=== PATIENT | male | born 1995 | race Hispanic/Latino ===

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

== ENCOUNTER 2017-01-20 14:00 | Outpatient (RCR) | payer OTHER | END 2017-01-26 | LOC: M OUTALCOH 14:00 | PROVIDERS: ATTEND Psychiatry & Neurology Psychiatry | DX: F12.20 Cannabis dependence, uncomplicated (principal); Z72.0 Tobacco use ==

== ENCOUNTER 2018-02-08 10:37 | Inpatient (IN) | payer OTHER ==
[2018-02-08 12:38] LABS: ANION GAP 5 MEQ/L (8-16); BLOOD UREA NITROGEN 8 MG/DL (7-18); CALCIUM LEVEL 8.8 MG/DL (8.5-10.1); CARBON DIOXIDE LEVEL 28 MEQ/L (21-32); CHLORIDE LEVEL 111 MEQ/L (98-107); CREATININE FOR GFR 0.86 MG/DL (0.70-1.30); GLUCOSE, FASTING 88 MG/DL (70-100); POTASSIUM SERUM 4.1 MEQ/L (3.5-5.1); SODIUM LEVEL 144 MEQ/L (136-145)
[2018-02-08 12:42] LABS: LACTIC ACID SEPSIS PROTOCOL 0.9 MMOL/L (0.4-2.0)
[2018-02-08] MEDS ORDERED: zolPIDEM TARTRATE 10MG TAB PO (18:00)
[2018-02-08] MEDS ORDERED: MOM 30ML SUSPENSION UDC PO (18:00)
[2018-02-08] MEDS ORDERED: traZODone 50 MG TAB PO (18:00)
[2018-02-08] MEDS ORDERED: MAALOX 30 ML SUSP *UDC PO (18:00)
[2018-02-09 09:55] LABS: HEMATOCRIT 46.7 % (42.0-52.0); HEMOGLOBIN 15.8 g/dl (13.5-17.5); MEAN CORPUSCULAR HEMOGLOBIN 30.1 pg (27.0-33.0); MEAN CORPUSCULAR HGB CONC 33.8 g/dl (32.0-36.5); PLATELET COUNT, AUTOMATED 213 10^3/uL (150-450); RED BLOOD COUNT 5.25 10^6/uL (4.30-6.10); RED CELL DISTRIBUTION WIDTH 13.4 % (11.5-14.5); WHITE BLOOD COUNT 7.5 10^3/uL (4.0-10.0)
[2018-02-09 10:46] LABS: ALBUMIN 3.8 GM/DL (3.2-5.2); ALBUMIN/GLOBULIN RATIO 1.12 (1.00-1.93); ALKALINE PHOSPHATASE 61 U/L (45-117); ALT/SGPT 17 U/L (12-78); ANION GAP 7 MEQ/L (8-16); AST/SGOT 21 U/L (7-37); BILIRUBIN,TOTAL 0.7 MG/DL (0.2-1.0); BLOOD UREA NITROGEN 12 MG/DL (7-18); CALCIUM LEVEL 8.7 MG/DL (8.5-10.1); CARBON DIOXIDE LEVEL 26 MEQ/L (21-32); CHLORIDE LEVEL 108 MEQ/L (98-107); CREATININE FOR GFR 0.82 MG/DL (0.70-1.30); GLUCOSE, FASTING 89 MG/DL (70-100); POTASSIUM SERUM 4.3 MEQ/L (3.5-5.1); SODIUM LEVEL 141 MEQ/L (136-145); TOTAL PROTEIN 7.2 GM/DL (6.4-8.2)
[2018-02-09] MEDS: PALIPERIDONE 3 MG ER TAB (INVEGA) PO (21:00)
[2018-02-10] MEDS: PALIPERIDONE 3 MG ER TAB (INVEGA) PO ×2 (09:00→21:00)
[2018-02-11] MEDS: PALIPERIDONE 3 MG ER TAB (INVEGA) PO ×3 (09:00→20:53)
[2018-02-12] MEDS: PALIPERIDONE 3 MG ER TAB (INVEGA) PO ×2 (08:03→20:46)
[2018-02-13] MEDS: PALIPERIDONE 3 MG ER TAB (INVEGA) PO ×2 (08:31→21:15)
[2018-02-13] MEDS ORDERED: OLANZapine ORAL DISINTEGRATING TAB 5MG PO (21:45)
[2018-02-14] MEDS: CitaloPRAM (CeleXA) 10 MG TABLET PO (08:03)
[2018-02-14] MEDS: PALIPERIDONE 3 MG ER TAB (INVEGA) PO ×2 (08:03→20:48)
[2018-02-14] MEDS: traZODone 50 MG TAB PO (20:48)
[2018-02-15] MEDS: PALIPERIDONE 3 MG ER TAB (INVEGA) PO ×2 (08:05→20:57)
[2018-02-15] MEDS: CitaloPRAM (CeleXA) 10 MG TABLET PO (08:05)
[2018-02-15] MEDS: traZODone 50 MG TAB PO (20:57)
[2018-02-16] MEDS: PALIPERIDONE 3 MG ER TAB (INVEGA) PO ×2 (08:39→21:00)
[2018-02-16] MEDS: CitaloPRAM (CeleXA) 10 MG TABLET PO (08:40)
[2018-02-16] MEDS: traZODone 50 MG TAB PO (21:00)
[2018-02-17] MEDS: PALIPERIDONE 3 MG ER TAB (INVEGA) PO ×2 (07:50→20:54)
[2018-02-17] MEDS: CitaloPRAM (CeleXA) 10 MG TABLET PO (07:51)
[2018-02-18] MEDS: CitaloPRAM (CeleXA) 10 MG TABLET PO (08:15)
[2018-02-18] MEDS: PALIPERIDONE 3 MG ER TAB (INVEGA) PO (09:00)
== END 2018-02-18 19:20 | disposition home or self-care (01) | DRG 885 ==
LOC: M ED 10:37 → M ED INP 15:36 → M PSY 16:17
DX: F29 Unspecified psychosis not due to a substance or known physiological condition (principal); F20.0 Paranoid schizophrenia; Z91.018 Allergy to other foods

== ENCOUNTER 2018-02-22 20:57 | Inpatient (IN) | payer OTHER ==
[2018-02-22 22:02] LABS: HEMATOCRIT 46.8 % (42.0-52.0); HEMOGLOBIN 15.9 g/dl (13.5-17.5); MEAN CORPUSCULAR HEMOGLOBIN 29.9 pg (27.0-33.0); PLATELET COUNT, AUTOMATED 264 10^3/uL (150-450); RED BLOOD COUNT 5.32 10^6/uL (4.30-6.10); RED CELL DISTRIBUTION WIDTH 13.6 % (11.5-14.5); WHITE BLOOD COUNT 11.2 10^3/uL (4.0-10.0)
[2018-02-22 22:26] LABS: ALBUMIN 4.2 GM/DL (3.2-5.2); ALKALINE PHOSPHATASE 66 U/L (45-117); ALT/SGPT 20 U/L (12-78); ANION GAP 9 MEQ/L (8-16); AST/SGOT 16 U/L (7-37); BILIRUBIN,DIRECT 0.2 MG/DL (0.0-0.2); BILIRUBIN,TOTAL 0.7 MG/DL (0.2-1.0); BLOOD UREA NITROGEN 14 MG/DL (7-18); CARBON DIOXIDE LEVEL 27 MEQ/L (21-32); CHLORIDE LEVEL 103 MEQ/L (98-107); CREATININE FOR GFR 0.85 MG/DL (0.70-1.30); ETHYL ALCOHOL (ETHANOL) < 0.003 % (0.000-0.010); GLUCOSE, FASTING 96 MG/DL (70-100); POTASSIUM SERUM 3.7 MEQ/L (3.5-5.1); SALICYLATE LEVEL < 1.7 MG/DL (5.0-30.0); SODIUM LEVEL 139 MEQ/L (136-145); TOTAL PROTEIN 7.7 GM/DL (6.4-8.2)
[2018-02-22 22:29] LABS: ACETAMINOPHEN LEVEL < 2.0 UG/ML (10.0-30.0)
[2018-02-22 22:36] LABS: AMPHETAMINES LEVEL URINE NEGATIVE (NEGATIVE); BARBITURATES URINE NEGATIVE (NEGATIVE); BENZODIAZEPINES URINE NEGATIVE (NEGATIVE); CANNABINOIDS URINE POSITIVE (NEGATIVE); COCAINE METABOLITE URINE NEGATIVE (NEGATIVE); METHADONE URINE NEGATIVE (NEGATIVE); OPIATES URINE NEGATIVE (NEGATIVE); PHENCYCLIDINE URINE NEGATIVE (NEGATIVE)
[2018-02-22] MEDS: LORazepam 2 MG/ML VIAL (J2060) IM (23:02)
[2018-02-22] MEDS: diphenhydrAMINE INJ 50MG/ML VIAL (J1200) IM (23:03)
[2018-02-22] MEDS ORDERED: MAALOX 30 ML SUSP *UDC PO (23:15)
[2018-02-22] MEDS ORDERED: MOM 30ML SUSPENSION UDC PO (23:15)
[2018-02-22] MEDS ORDERED: ACETAMINOPHEN TAB 650MG DOSE (2X325MG) PO (23:15)
[2018-02-23] MEDS: PALIPERIDONE 3 MG ER TAB (INVEGA) PO ×2 (08:36→22:15)
[2018-02-23] MEDS ORDERED: OLANZapine ORAL DISINTEGRATING TAB 5MG PO (11:15)
[2018-02-23] MEDS: PALIPERIDONE PALMITATE 234 MG/1.5 ML INJ (INVEGA SUSTENNA)(J2426) IM (13:00)
[2018-02-24] MEDS: PALIPERIDONE 3 MG ER TAB (INVEGA) PO ×2 (09:35→22:50)
[2018-02-25] MEDS: PALIPERIDONE 3 MG ER TAB (INVEGA) PO ×2 (09:23→21:00)
[2018-02-25] MEDS ORDERED: OLANZapine ORAL DISINTEGRATING TAB 5MG As Ordered (15:55)
[2018-02-25] MEDS ORDERED: diphenhydrAMINE 50 MG CAP As Ordered (15:56)
[2018-02-26] MEDS: PALIPERIDONE 3 MG ER TAB (INVEGA) PO ×2 (08:24→21:30)
[2018-02-26] MEDS: diphenhydrAMINE 50 MG CAP PO (13:09)
[2018-02-26] MEDS: HALOPERIDOL 5 MG TAB PO (13:09)
[2018-02-26] MEDS: LORazepam 1 MG TAB PO (13:09)
[2018-02-26] MEDS: diphenhydrAMINE INJ 50MG/ML VIAL (J1200) IM (13:17)
[2018-02-26] MEDS ORDERED: HALOPERIDOL 5 MG/ML VIAL (J1630) IM (13:17)
[2018-02-26] MEDS: LORazepam 2 MG/ML VIAL (J2060) IM (14:17)
[2018-02-27] MEDS: PALIPERIDONE 3 MG ER TAB (INVEGA) PO ×2 (09:40→20:11)
[2018-02-28] MEDS: PALIPERIDONE 3 MG ER TAB (INVEGA) PO ×2 (10:37→20:51)
[2018-03-01] MEDS: PALIPERIDONE 3 MG ER TAB (INVEGA) PO ×2 (08:43→20:37)
[2018-03-01] MEDS: traZODone 50 MG TAB PO (20:37)
[2018-03-02] MEDS: PALIPERIDONE 3 MG ER TAB (INVEGA) PO ×2 (08:13→20:29)
[2018-03-02] MEDS: traZODone 50 MG TAB PO (20:29)
[2018-03-03] MEDS: PALIPERIDONE 3 MG ER TAB (INVEGA) PO ×2 (08:43→21:03)
[2018-03-03] MEDS: PALIPERIDONE PALMITATE 156 MG/1ML INJ(INVEGA SUSTENNA)(J2426) IM (08:43)
[2018-03-03] MEDS: traZODone 50 MG TAB PO (21:03)
[2018-03-04] MEDS: PALIPERIDONE 3 MG ER TAB (INVEGA) PO (08:58)
[2018-03-04] MEDS ORDERED: diphenhydrAMINE 25 MG CAP PO (11:15)
[2018-03-04] MEDS ORDERED: OLANZapine 5 MG TAB PO (21:00)
[2018-03-27] MEDS ORDERED: PALIPERIDONE PALMITATE 234 MG/1.5 ML INJ (INVEGA SUSTENNA)(J2426) IM (09:00)
== END 2018-03-04 16:40 | disposition home or self-care (01) | DRG 885 ==
LOC: M PSY 02-26 15:47 → M ED 20:57 → M ED INP 23:09 → M PSY 23:37
DX: F29 Unspecified psychosis not due to a substance or known physiological condition (principal); F20.0 Paranoid schizophrenia; Z91.14 Patient's other noncompliance with medication regimen; Z79.899 Other long term (current) drug therapy; Z91.018 Allergy to other foods; Z81.8 Family history of other mental and behavioral disorders

== ENCOUNTER 2019-09-30 20:53 | Inpatient (IN) | payer MEDICAID, OTHER, SELFPAY ==
[~2019-09-30] VITALS: Ht 172.7 cm; Wt 60.2 kg
[2019-09-30] MEDS: NICOTINE 21MG/24HR 1 EA TRANSDERMAL TD SCH (09:00)
[~2019-09-30 20:53] MED LIST: CELE10TA PO; CITA20TA6 PO; DIPH25CA32 PO; INVE234I IM; OLAN5TAB PO; PALI1TAB2 PO; PALI1TAB3 PO; TRAZ1TAB10 PO
[2019-09-30] MEDS: PALIPERIDONE 3 MG ER TAB (INVEGA) PO SCH (21:00)
[2019-09-30 22:22] LABS: HEMOGLOBIN 14.9 g/dl (13.5-17.5); MEAN CORPUSCULAR HEMOGLOBIN 30.4 pg (27.0-33.0); MEAN CORPUSCULAR HGB CONC 33.1 g/dl (32.0-36.5); MEAN CORPUSCULAR VOLUME 91.8 fl (80.0-96.0); PLATELET COUNT, AUTOMATED 217 10^3/uL (150-450); WHITE BLOOD COUNT 9.2 10^3/uL (4.0-10.0)
[2019-09-30 22:43] LABS: AMPHETAMINES LEVEL URINE NEGATIVE (NEGATIVE); BARBITURATES URINE NEGATIVE (NEGATIVE); BENZODIAZEPINES URINE NEGATIVE (NEGATIVE); CANNABINOIDS URINE POSITIVE (NEGATIVE); COCAINE METABOLITE URINE NEGATIVE (NEGATIVE); METHADONE URINE NEGATIVE (NEGATIVE); OPIATES URINE NEGATIVE (NEGATIVE); PHENCYCLIDINE URINE NEGATIVE (NEGATIVE)
[2019-09-30 22:58] LABS: ACETAMINOPHEN LEVEL < 2.0 UG/ML (10.0-30.0); ALBUMIN 3.9 GM/DL (3.2-5.2); ALT/SGPT 22 U/L (12-78); BILIRUBIN,DIRECT < 0.1 MG/DL (0.0-0.2); BILIRUBIN,TOTAL 0.3 MG/DL (0.2-1.0); BLOOD UREA NITROGEN 6 MG/DL (7-18); CALCIUM LEVEL 8.9 MG/DL (8.5-10.1); CARBON DIOXIDE LEVEL 28 MEQ/L (21-32); CHLORIDE LEVEL 105 MEQ/L (98-107); CREATININE FOR GFR 0.74 MG/DL (0.70-1.30); ETHYL ALCOHOL (ETHANOL) < 0.003 % (0.000-0.010); GLOMERULAR FILTRATION RATE > 60.0 (>60); GLUCOSE, FASTING 94 MG/DL (70-100); SALICYLATE LEVEL 3.2 MG/DL (5.0-30.0); SODIUM LEVEL 139 MEQ/L (136-145)
[2019-09-30] MEDS ORDERED: MAALOX 30 ML SUSP *UDC PO PRN (23:30)
[2019-09-30] MEDS ORDERED: ACETAMINOPHEN TAB 650MG DOSE (2X325MG) PO PRN (23:30)
[2019-09-30] MEDS ORDERED: OLANZapine ORAL DISINTEGRATING TAB 5MG PO PRN (23:30)
[2019-09-30] MEDS ORDERED: MOM 30ML SUSPENSION UDC PO PRN (23:30)
[2019-10-01 00:23] VITALS: BP 140/80
[2019-10-01 06:31] VITALS: BP 120/78
[2019-10-01] MEDS: NICOTINE 21MG/24HR 1 EA TRANSDERMAL TD SCH (09:00)
[2019-10-01] MEDS: PALIPERIDONE 3 MG ER TAB (INVEGA) PO SCH (09:00)
--- NOTE | 2019-10-01 11:07 | MHHPEPDOC ---
General Date Of Admission: Sep 30, 2019 Legal Status: 9.39 Chief Complaint "I need mental health". History of Present Illness HISTORY OF THE PRESENT ILLNESS: Patient is a 24 -year-old , male, with a psych history of schizophrenia, last admitted [facility] 03/04/19 for psychosis who was brought to ED by [employer] due to acting bizarre, paranoid, and requesting to come to [facility] ED per ED. Per ED, pt was vvery guarded, poor eye contact, need prompting on answering question and then would answer inappropriately, and non-verbal mostly when seen. Per ED, pt speaking to God "God has a plan for me" and that he came to the ED "to repent for my sins in velez esoteric way" and would inappropriately smile when speaking. Also stated, "I'm hearing shit I shouldn't be hearing." Per ED, pt has been non-compliant with outpatient care and medications. Psychiatric Review of Systems Depression (2 or more weeks): denies Psychosis: auditory hallucination, delusions, paranoia, disorganization, other (religiousity) PTSD: denies Anxiety: denies Anxiety/ 6 months or more of: restlessness, keyed up, difficulty concentrating, irritability Past Psychiatric History Previous Psychiatric Diagnosis: Unspecified Psychosis, Schizophrenia Previous Psychiatric Admissions: last admission [facility] 03/04/19 for psychosis Suicide Attempts: no hx of per pt's aunt Psychiatric Follow-up: [facility] Psychiatric medications: invega 9mg bid Past Medical History Medical Problems denies Head Injury: No Seizures: No Hospitalizations: No Surgeries: No Family Medical/Psychiatric HX Medical Problems noncontributory Psychiatric Disorders: No Addiction: No Suicide Attemps/Completions: No Addiction History nicotine, alcohol, other (cannabis utox positive) Social History Childhood: raised mostly by aunt after mother diagnosed with schizophrenia at age 5 Abuse/Trauma:none known Current Living Situation: lives with aunt Education: high school edu Employment: quit job last week for unknown reason Social Support: aunt Legal: none known Marital: single Mental Status Examination General Appearance: unkempt, appears stated age, hospital scubs/clothing Build: average Demeanor: preoccupied, guarded Eye Contact: fair Activity: average Behavior: cooperative, other (disorganized) Speech: clear, non-spontaneous, impoverished, other (non-sensical) Mood: euthymic Mood "people know my thoughts" Affect: full, inappropriate, disorganized Thought Process: tangential, loose, associative, flight of ideas, derailment Thought Content (Delusions): grandiose, bizarre, paranoia, delusions (believes he has a "mind leak"), other (religiousity) Thought Content (Other): preoccupied, ideas of reference, internal-stimuli, appears paranoid Thought Content (Aggressive): none reported Perception (Hallucinations): auditory Perception (Other): none reported Cognition (Impairment of): memory, attention/concentration, ability to abstract Cognition(Intelligence Est.): average Oriented: Awake, Alert, Oriented times three Insight: poor Judgment: Poor Psychosis: Associations, Psychotic Perceptions Diagnoses Paranoid Schizophrenia Cannabis use d/o A-FIB/CHADSVASC A-FIB History Current/History of A-Fib/PAF?: No Assessment Pt seen and is disorganized, talking about God wanting something for him, believes he has a "mind link" and that people "know my thoughts," and answering questions non-scenically. He appears to be experiencing psychosis secondary to med noncompliance. He is agreeable to restarting invega that he calls "that wonderful medication." He appears to need figure skater antipsychotic injection for med compliance. Pt is a very poor historian due to current paranoia and psychosis. Initial Treatment Plan 1. Patient was admitted on a 9.39 status. 2. Complete history was obtained. 3. With patients permission, family will be contacted and database will be expanded. 4. Patients medication regimen will be reviewed and changed accordingly. 5. Patient will be provided with protected environment. 6. Patient will be treated with individual, group, and milieu therapies. 7. Patient will receive supportive psych-education. 8. Discharge planning will commence immediately. 9. Outpatient follow-up treatment will be strongly recommended. 10. The initial treatment plan will focus initially on: * Depression. * Risk for suicide. 11. restart invega 6mg bid. Invega sustenna 234mg IM in future. Prns for anxiety/agitation ESTIMATED LENGTH OF STAY: 7-10 DAYS. TIME SPENT COUNSELING AND COORDINATING INITIAL CARE: 30 minutes. Vital Signs Vital Signs Date Time Temp Pulse Resp B/P (MAP) Pulse Ox O2 Delivery O2 Flow Rate FiO2 10/01/19 06:31 98.3 65 16 120/78 (92) Room Air 10/01/19 00:23 99 Laboratory Data 24H Labs Laboratory Tests 2 09/30/19 22:10: Nucleated Red Blood Cells % (auto) 0.0, Anion Gap 6L, Glomerular Filtration Rate > 60.0, Calcium Level 8.9, Total Bilirubin 0.3, Direct Bilirubin < 0.1, Aspartate Amino Transf (AST/SGOT) 23, Alanine Aminotransferase (ALT/SGPT) 22, Alkaline Phosphatase 90, Total Protein 7.0, Albumin 3.9, Albumin/Globulin Ratio 1.26, Thyroid Stimulating Hormone (TSH) 3.010, Salicylates Level 3.2L, Acetaminophen Level < 2.0L, Ethyl Alcohol Level < 0.003 09/30/19 22:11: Urine Opiates Screen NEGATIVE, Urine Methadone Screen NEGATIVE, Urine Barbiturates Screen NEGATIVE, Urine Phencyclidine Screen NEGATIVE, Urine Amphetamines Screen NEGATIVE, Urine Benzodiazepines Screen NEGATIVE, Urine Cocaine Metabolite Screen NEGATIVE, Urine Cannabinoids Screen POSITIVEH CBC/BMP Laboratory Tests 09/30/19 22:10 Medications Unable to Obtain Active Prescriptions or Reported Meds Allergies Coded Allergies: [place] (Verified Allergy, Unknown, 02/08/18) CARLINE SAVAGE DO Oct 01, 2019 11:07 am
[2019-10-01] MEDS ORDERED: PALIPERIDONE 3 MG ER TAB (INVEGA) PO ONE (11:15)
--- NOTE | 2019-10-01 15:36 | HPEPDOC ---
General Date of Admission Sep 30, 2019 at 23:25 Date of Service: Oct 01, 2019 Attending Physician: GALLO OAKLEY MD Chief Complaint The patient is a 24-year-old male admitted with a reason for visit of Unspecified Psychotic Disorder. Source: Patient Exam Limitations: No limitations Timing/Duration: Unsure Severity: Severe Associated Symptoms: Other (psychosis) History of Present Illness 24 yo man with a history of schizophrenia, cigarrette smoking and marijuana use who was brought in to the ED by the police after they found him wandering the streets of [place] and he asked to be taken to the ED and after initial medical screening was admitted to [facility] for psychiatric evaluation and medical management. On meeting Mr. Ogden, he is in nimco psychosis with disorganized conversations that are tangential, suspicious and withdrawn. Agreed to have phy sical exam and was pleasant otherwise. When I asked where he lives, he said [place]." He otherwise denied any recent fevers, chills, congestion, shortness of breath, chest pain, palpitations. Home Medications Unable to Obtain Active Prescriptions or Reported Meds Allergies Coded Allergies: [place] (Verified Allergy, Unknown, 02/08/18) Past Medical History Medical History Schizophrenia Smoker Marijuana use A-FIB/CHADSVASC A-FIB History Current/History of A-Fib/PAF?: No Current PO Anticoag Therapy: No Age/Risk Factor Scoring CHADSVASC: CHADSVASC Response (Comments) Value Age Risk Factor Age < 65 years old 0 Gender Risk Factor Male 0 Hx of CHF No 0 Hx of HTN No 0 Hx of Stroke/TIA/or VTE No 0 Hx of Diabetes No 0 Hx of Vascular Disease No 0 Total 0 Treatment Treatment ordered: NONE Reason Anticoagulant not given: Not indicated/[id number] Review of Systems Constitutional: Denies: Chills, Fever, Night Sweats Eyes: Denies: Pain, Vision change ENT: Denies: Head Aches, Ear Pain, Dysphagia Skin: Denies: Rash, Lesions, Breakdown Pulmonary: Denies: Dyspnea, Cough Cardiovascular: Denies: Chest Pain, Palpitations, Orthopnea, Paroxysmal Noc. Dyspnea, Lt Headedness Gastrointestinal: Denies: Nausea, Vomiting, Abdominal Pain, Diarrhea Genitourinary: Denies: Dysuria, Frequency, Incontinence, Retention Hematologic: Denies: Bruising, Bleeding Excessively Endocrine: Denies: Polydipsia, Polyphagia, Polyuria, Heat Intolerance, Cold Intolerance, Other Endocrine Sx Musculoskeletal: Denies: Neck Pain, Back Pain, Joint Pain, Muscle Pain, Spasms Neurological: Denies: Weakness, Numbness, Change in speech, Confusion Psych: Reports: Depression (could not assess more than disorganized thought content and process.), Other Psych Physical Examination General Exam: Positive: Alert, No Acute Distress Eye Exam: Positive: PERRLA, Conjunctiva & lids normal, EOMI; Negative: Sclera icteric ENT Exam: Positive: Atraumatic, Mucous membr. moist/pink, Pharynx Normal Neck Exam: Positive: Supple; Negative: JVD, thyromegaly Chest Exam: Positive: Clear to auscultation, Normal air movement Heart Exam: Positive: Rate Normal, Regular Rhythm, Normal S1, Normal S2; Negative: Murmurs, Rubs Telemetry: Positive: No significant arrhythmia Abdomen Exam: Positive: Normal bowel sounds, Soft; Negative: Tenderness, Hepatospenomegaly Extremity Exam: Positive: Normal pulses; Negative: Clubbing, Cyanosis, Edema Skin Exam: Positive: Nl turgor and temperature, Other skin issue (has multiple tattoos, no erythema or lesions); Negative: Breakdown, Lesion Neuro Exam: Positive: Normal Gait, Normal Speech, Cranial Nerves 3-12 NL, Reflexes 2+ Psych Exam: Positive: Other (could not assess more than that he had disorganized thought process and content); Negative: Oriented x 3 (to self only, not place or circumstances) Vital Signs Vital Signs Date Time Temp Pulse Resp B/P (MAP) Pulse Ox O2 Delivery O2 Flow Rate FiO2 10/01/19 06:31 98.3 65 16 120/78 (92) Room Air 10/01/19 00:23 99 Laboratory Data Labs 24H Laboratory Tests 2 09/30/19 22:10: Nucleated Red Blood Cells % (auto) 0.0, Anion Gap 6L, Glomerular Filtration Rate > 60.0, Calcium Level 8.9, Total Bilirubin 0.3, Direct Bilirubin < 0.1, Aspartate Amino Transf (AST/SGOT) 23, Alanine Aminotransferase (ALT/SGPT) 22, Alkaline Phosphatase 90, Total Protein 7.0, Albumin 3.9, Albumin/Globulin Ratio 1.26, Thyroid Stimulating Hormone (TSH) 3.010, Salicylates Level 3.2L, Acetaminophen Level < 2.0L, Ethyl Alcohol Level < 0.003 09/30/19 22:11: Urine Opiates Screen NEGATIVE, Urine Methadone Screen NEGATIVE, Urine Barbiturates Screen NEGATIVE, Urine Phencyclidine Screen NEGATIVE, Urine Amphetamines Screen NEGATIVE, Urine Benzodiazepines Screen NEGATIVE, Urine Cocaine Metabolite Screen NEGATIVE, Urine Cannabinoids Screen POSITIVEH CBC/BMP Laboratory Tests 09/30/19 22:10 Assessment/Plan 24 yo man with schizophrenia who is admitted into the [facility] in nimco psychosis and good physical health with normal labs, with suspected medication non- compliance, so admitted for psychiatric evaluation and med optimizations. Medicine will sign off at this time. Please reconsult with any medical concerns. Thank you. Plan / VTE VTE Prophylaxis Ordered?: No VTE Exclusion Mechanical Proph: Low Risk for VTE VTE Exclusion Pharmacological: At Low Risk for VTE GALLO OAKLEY MD Oct 01, 2019 15:36
[2019-10-01] MEDS: PALIPERIDONE 6 MG ER TAB (INVEGA) PO SCH (20:25)
[2019-10-02] MEDS: PALIPERIDONE 6 MG ER TAB (INVEGA) PO SCH ×3 (09:50→20:35)
[2019-10-02] MEDS: NICOTINE 21MG/24HR 1 EA TRANSDERMAL TD SCH (09:50)
[2019-10-02 15:56] VITALS: BP 115/55
[2019-10-02] MEDS: traZODone 50 MG TAB PO PRN (20:35)
--- NOTE | 2019-10-02 20:52 | MHIPN ---
DATE: 10/02/2019 The patient today is basically denying any of the symptoms that resulted in his hospitalization. He says that he was never hearing any voices from God. He refers to "an old man." He says that he was talking to this man and the man was the one that called the police. He really does not feel that he needs to be in the hospital. MENTAL STATUS EXAMINATION: The patient is alert and oriented times three. He is pleasant, cooperative, verbally spontaneous. Eye contact is fair. There is no formal thought disorder noted. He says his mood is "good." Affect is appropriate to mood. He is denying any hallucinations or delusions, but I think that he is just minimizing at this point. He denying being suicidal or homicidal. Concentration is fair. Memory intact. Insight and judgment poor. DIAGNOSES: 1. Paranoid schizophrenia. 2. Cannabis use disorder. TREATMENT PLAN: At this point, we will continue to monitor the patient for his psychotic symptoms. He is really minimizing everything because he wants to be discharged now and his Invega will continue to be titrated as indicated.
[2019-10-03] MEDS: PALIPERIDONE 6 MG ER TAB (INVEGA) PO SCH ×2 (08:48→21:16)
[2019-10-03] MEDS: NICOTINE 21MG/24HR 1 EA TRANSDERMAL TD SCH (08:50)
[2019-10-03 15:51] VITALS: BP 127/70
--- NOTE | 2019-10-03 20:13 | MHIPN ---
DATE: 10/03/2019 The patient today told me that he is doing "good." He maintained no eye contact. He had no complaints. He said that he had just been sleeping in his room when staff went to get him. MENTAL STATUS EXAMINATION: The patient is alert and oriented times three. He responds in simple one or two word answers. Eye contact is poor. There is no formal thought disorder noted. Mood is good. Affect is flat. He is denying any hallucinations, but appears to be hallucinating. He is not suicidal or homicidal. Concentration is fair. Insight and judgment poor. DIAGNOSES: 1. Schizophrenia. 2. Cannabis use disorder. TREATMENT PLAN: At this point, we will continue to monitor the patient for his psychotic symptoms and hopefully we will start seeing some resolution of some of these symptoms with medication. He has absolutely no insight about his illness.
[2019-10-04 06:22] VITALS: BP 124/65
[2019-10-04] MEDS: NICOTINE 21MG/24HR 1 EA TRANSDERMAL TD SCH (08:02)
[2019-10-04] MEDS: PALIPERIDONE 6 MG ER TAB (INVEGA) PO SCH ×2 (08:03→20:26)
--- NOTE | 2019-10-04 11:05 | MHIPNPDOC ---
[facility] Progress Note Progress Note DATE OF SERVICE: 10/04/19 HISTORY: Patient is a 24 -year-old , male, with a psych history of schizophrenia, last admitted [facility] 03/04/19 for psychosis who was brought to ED by [employer] due to acting bizarre, paranoid, and requesting to come to [facility] ED per ED. Per ED, pt was very guarded, poor eye contact, need prompting on answering question and then would answer inappropriately, and non-verbal mostly when seen. Per ED, pt speaking to God "God has a plan for me" and that he came to the ED "to repent for my sins in velez esoteric way" and would inappropriately smile when speaking. Also stated, "I'm hearing shit I shouldn't be hearing." Per ED, pt has been non-compliant with outpatient care and medications. VITAL SIGNS: See below. NEW TEST RESULTS: See below. CURRENT MEDICATIONS: See below. MENTAL STATUS EXAMINATION: Patient is a 24-year old male, who is clean and in his own clothes. Speech: Is clear, normal volume, regular rate and rhythm. Language skills are intact. Thought processes including: logical and linear. Thought content: States that when he was helping his older 70 yr friend "my friend started talking about brandee lines and space manipulation. When I asked questions he got puffed up and called the police on me. I waited for them because I was not doing anything wrong." Which is a different statement from when he was brought into the ED. Denies SI, HI, AVH. Abstract reasoning, and computation: inappropriate Description of associations: inappropriate Description of abnormal or psychotic thoughts: bizarre delusions Judgment: poor. Insight: poor. Orientation: AAOx3. Recent and remote memory: intact. Attention span and concentration: fair Language: intact. Fund of knowledge: intact. Mood: "good I was bored over the weekend." Affect: appropriate, euthymic DIAGNOSES: 1. Paranoid Schizophrenia 2. Cannabis use d/o ASSESSMENT: Pt seen and states that his mood is "good, but I was bored this weekend." Pt no longer endorses any auditory or visual hallucinations. Pt is preoccupied with the idea that his elderly friend was the one who called the unemployment specialist on him when the pt started challenging his friends views on brandee lines and other mystical thinking. Pt stated that when he did object to those view, his friend got upset and called the police on him. The ED report states that he was found wandering [place] and complaining of "hearing and seeing shit that is not there." Will continue to monitor his awareness of why he was brought in. States he has been sleeping a lot and it should be noted that today is the first time staff has found him awake and engaged. Pt is encouraged to attend groups. He denies SI/HI, hallucinations, delusions. Pt feels safe here. MANAGEMENT PLAN: Continue Invega 6 mg. TIME SPENT: 30 minutes. Agree with student note. Dr. Fiorella Aguirre Vital Signs Vital Signs Date Time Temp Pulse Resp B/P (MAP) Pulse Ox O2 Delivery O2 Flow Rate FiO2 10/04/19 06:22 97.9 80 16 124/65 (84) 10/01/19 06:31 Room Air 10/01/19 00:23 99 Current Medications Current Medications Medications (Trade) Dose Ordered Sig/Liset Route PRN Reason Start Time Stop Time Status Last Admin Dose Admin Acetaminophen (Tylenol Tab) 650 mg Q6HP PRN PO HEADACHE or DISCOMFORT 09/30/19 23:30 Al Hydrox/Mg Hydrox/Simethicone (Mylanta) 30 ml Q4HP PRN PO HEARTBURN/INDIGESTION 09/30/19 23:30 Home Med (Med Rec Complete!) ASDIRECTED XX 09/30/19 21:45 09/30/19 21:40 DC Magnesium Hydroxide (Milk Of Magnesia) 30 ml DAILYPRN PRN PO CONSTIPATION 09/30/19 23:30 Nicotine (Nicoderm Cq 21mg) 1 patch DAILY TD 09/30/19 09:00 Olanzapine (ZyPREXA ZYDIS) 5 mg Q6HP PRN PO ANXIETY/AGITATION 09/30/19 23:30 Paliperidone (Invega) 3 mg BID PO 09/30/19 21:00 10/01/19 11:03 DC 10/01/19 09:00 Paliperidone (Invega) 6 mg BID PO 10/01/19 21:00 10/04/19 08:03 Trazodone HCl (Desyrel) 50 mg QHSP PRN PO INSOMNIA 09/30/19 23:30 10/02/19 20:35 Allergies Coded Allergies: [place] (Verified Allergy, Unknown, 02/08/18) KATIE SO S-IV Oct 04, 2019 10:56 FIORELLA AGUIRRE DO Oct 04, 2019 11:54
[2019-10-04 18:00] VITALS: BP 127/72
[2019-10-04] MEDS: traZODone 50 MG TAB PO PRN (20:26)
[2019-10-05 06:36] VITALS: BP 116/75
[2019-10-05] MEDS: NICOTINE 21MG/24HR 1 EA TRANSDERMAL TD SCH (08:17)
[2019-10-05] MEDS: PALIPERIDONE 6 MG ER TAB (INVEGA) PO SCH ×2 (08:18→20:05)
--- NOTE | 2019-10-05 09:01 | MHIPNPDOC ---
[facility] Progress Note Progress Note DATE OF SERVICE: 10/05/19 HISTORY: Patient is a 24 -year-old , male, with a psych history of schizophrenia, last admitted [facility] 03/04/19 for psychosis who was brought to ED by [facility] due to acting bizarre, paranoid, and requesting to come to [facility] ED per ED. Per ED, pt was very guarded, poor eye contact, need prompting on answering question and then would answer inappropriately, and non-verbal mostly when seen. Per ED, pt speaking to God "God has a plan for me" and that he came to the ED "to repent for my sins in velez esoteric way" and would inappropriately smile when speaking. Also stated, "I'm hearing shit I shouldn't be hearing." Per ED, pt has been non-compliant with outpatient care and medications. VITAL SIGNS: See below. NEW TEST RESULTS: See below. CURRENT MEDICATIONS: See below. MENTAL STATUS EXAMINATION: Patient is a 24-year old male, who is clean and in his own clothes. Speech: Is clear, normal volume, regular rate and rhythm. Language skills are intact. Thought processes including: logical and linear. Thought content: States that when he was helping his older 70 yr friend "my friend started talking about brandee lines and space manipulation. When I asked questions he got puffed up and called the police on me. I waited for them because I was not doing anything wrong." Which is a different statement from when he was brought into the ED. Denies SI, HI, AVH. Abstract reasoning, and computation: inappropriate Description of associations: inappropriate Description of abnormal or psychotic thoughts: bizarre delusions Judgment: poor. Insight: poor. Orientation: AAOx3. Recent and remote memory: intact. Attention span and concentration: fair Language: intact. Fund of knowledge: intact. Mood: "good I was bored over the weekend." Affect: appropriate, euthymic DIAGNOSES: 1. Paranoid Schizophrenia 2. Cannabis use d/o ASSESSMENT: Pt seen and states that his mood is "ok." Asked how his thoughts are and denies their clear "b/c I don't think that much" and that his thoughts are numb but denies it's b/c of the medicine. His is agreeable to taking invega sustenna as he admits he doesn't like taking medicine but will take the shot. States he doesn't know where he's going after d/c. He appears lackadaisical and slightly bizarre in affect. Pt no longer endorses any auditory or visual hallucinations. Pt is preoccupied with the idea that his elderly friend was the one who called the manager payment on him when the pt started challenging his friends views on brandee lines and other mystical thinking. Pt stated that when he did object to those view, his friend got upset and called the police on him. The ED report states that he was found wandering [place] and complaining of "hearing and seeing shit that is not there." Will continue to monitor his awareness of why he was brought in. States he has been sleeping a lot and it should be noted that today is the first time staff has found him awake and engaged. Pt is encouraged to attend groups. He denies SI/HI, hallucinations, delusions. Pt feels safe here. MANAGEMENT PLAN: Continue Invega 6 mg. invega sustenna 234mg im today invega sustenna 156mg im Friday TIME SPENT: 30 minutes. Vital Signs Vital Signs Date Time Temp Pulse Resp B/P (MAP) Pulse Ox O2 Delivery O2 Flow Rate FiO2 10/05/19 06:36 97.3 84 12 116/75 (89) Room Air 10/01/19 00:23 99 Current Medications Current Medications Medications (Trade) Dose Ordered Sig/Liset Route PRN Reason Start Time Stop Time Status Last Admin Dose Admin Acetaminophen (Tylenol Tab) 650 mg Q6HP PRN PO HEADACHE or DISCOMFORT 09/30/19 23:30 Al Hydrox/Mg Hydrox/Simethicone (Mylanta) 30 ml Q4HP PRN PO HEARTBURN/INDIGESTION 09/30/19 23:30 Home Med (Med Rec Complete!) ASDIRECTED XX 09/30/19 21:45 09/30/19 21:40 DC Magnesium Hydroxide (Milk Of Magnesia) 30 ml DAILYPRN PRN PO CONSTIPATION 09/30/19 23:30 Nicotine (Nicoderm Cq 21mg) 1 patch DAILY TD 09/30/19 09:00 Olanzapine (ZyPREXA ZYDIS) 5 mg Q6HP PRN PO ANXIETY/AGITATION 09/30/19 23:30 Paliperidone (Invega) 3 mg BID PO 09/30/19 21:00 10/01/19 11:03 DC 10/01/19 09:00 Paliperidone (Invega) 6 mg BID PO 10/01/19 21:00 10/05/19 08:18 Trazodone HCl (Desyrel) 50 mg QHSP PRN PO INSOMNIA 09/30/19 23:30 10/04/19 20:26 Allergies Coded Allergies: [place] (Verified Allergy, Unknown, 02/08/18) CARLINE SAVAGE DO Oct 05, 2019 9:01 am
[2019-10-05] MEDS ORDERED: PALIPERIDONE PALMITATE 234MG/1.5ML INJ (INVEGA)(J2426)(FREE PSY INPT ONLY) IM ONE (10:00)
[2019-10-05 16:28] VITALS: BP 118/65
[2019-10-05] MEDS: traZODone 50 MG TAB PO PRN (20:05)
[2019-10-06 06:43] VITALS: BP 129/63
[2019-10-06] MEDS: PALIPERIDONE 6 MG ER TAB (INVEGA) PO SCH ×2 (08:52→20:04)
[2019-10-06] MEDS: NICOTINE 21MG/24HR 1 EA TRANSDERMAL TD SCH (08:55)
--- NOTE | 2019-10-06 10:35 | MHIPNPDOC ---
[facility] Progress Note Progress Note DATE OF SERVICE: 10/06/19 HISTORY: Patient is a 24 -year-old , male, with a psych history of schizophrenia, last admitted [facility] 03/04/19 for psychosis who was brought to ED by [facility] due to acting bizarre, paranoid, and requesting to come to [facility] ED per ED. Per ED, pt was very guarded, poor eye contact, need prompting on answering question and then would answer inappropriately, and non-verbal mostly when seen. Per ED, pt speaking to God "God has a plan for me" and that he came to the ED "to repent for my sins in velez esoteric way" and would inappropriately smile when speaking. Also stated, "I'm hearing shit I shouldn't be hearing." Per ED, pt has been non-compliant with outpatient care and medications. VITAL SIGNS: See below. NEW TEST RESULTS: See below. CURRENT MEDICATIONS: See below. MENTAL STATUS EXAMINATION: Patient is a 24-year old male, who is clean and in his own clothes. Speech: Is clear, normal volume, regular rate and rhythm. Language skills are intact. Thought processes including: logical and linear. Thought content: mystical/magical thinking. Denies SI, HI, AVH. Abstract reasoning, and computation: more appropriate Description of associations: more appropriate Description of abnormal or psychotic thoughts: bizarre delusions Judgment: improving Insight: improving Orientation: AAOx3. Recent and remote memory: intact. Attention span and concentration: fair Language: intact. Fund of knowledge: intact. Mood: "alright" Affect:euthymic, less lackadaisical and less bizarre DIAGNOSES: 1. Paranoid Schizophrenia 2. Cannabis use d/o ASSESSMENT: Pt seen and states that his mood is "alright." Stated "the shot hurt" as received invega sustenna 234mg im yesterday that he is tolerating well and appears beneficial. Endorsing fatigue today most like due to im invega sustenna yesterday that should improve over time. States thoughts are more clear today. He appears less lackadaisical and less bizarre in affect today. Pt no longer endorses any auditory or visual hallucinations. Pt is occasionally preoccupied with mystical/magical thinking. Will continue to monitor his awareness of why he was brought in. States he has been sleeping a lot and it should be noted that today is the first time staff has found him awake and engaged. Pt is encouraged to attend groups. He denies SI/HI, hallucinations, delusions. Pt feels safe here. MANAGEMENT PLAN: Continue Invega 6 mg. invega sustenna 234mg im 10/05/2019 invega sustenna 156mg im Friday TIME SPENT: 30 minutes. Vital Signs Vital Signs Date Time Temp Pulse Resp B/P (MAP) Pulse Ox O2 Delivery O2 Flow Rate FiO2 10/06/19 06:43 97.9 72 14 129/63 (85) 10/05/19 06:36 Room Air 10/01/19 00:23 99 Current Medications Current Medications Medications (Trade) Dose Ordered Sig/Liset Route PRN Reason Start Time Stop Time Status Last Admin Dose Admin Acetaminophen (Tylenol Tab) 650 mg Q6HP PRN PO HEADACHE or DISCOMFORT 09/30/19 23:30 Al Hydrox/Mg Hydrox/Simethicone (Mylanta) 30 ml Q4HP PRN PO HEARTBURN/INDIGESTION 09/30/19 23:30 Home Med (Med Rec Complete!) ASDIRECTED XX 09/30/19 21:45 09/30/19 21:40 DC Magnesium Hydroxide (Milk Of Magnesia) 30 ml DAILYPRN PRN PO CONSTIPATION 09/30/19 23:30 Nicotine (Nicoderm Cq 21mg) 1 patch DAILY TD 09/30/19 09:00 Olanzapine (ZyPREXA ZYDIS) 5 mg Q6HP PRN PO ANXIETY/AGITATION 09/30/19 23:30 Paliperidone (Invega) 3 mg BID PO 09/30/19 21:00 10/01/19 11:03 DC 10/01/19 09:00 Paliperidone (Invega) 6 mg BID PO 10/01/19 21:00 10/06/19 08:52 Trazodone HCl (Desyrel) 50 mg QHSP PRN PO INSOMNIA 09/30/19 23:30 10/05/19 20:05 Allergies Coded Allergies: [place] (Verified Allergy, Unknown, 02/08/18) CARLINE SAVAGE DO Oct 06, 2019 10:35 am
[2019-10-06 16:21] VITALS: BP 112/70
[2019-10-06] MEDS: traZODone 50 MG TAB PO PRN (20:04)
[2019-10-07 05:52] VITALS: BP 116/62
[2019-10-07] MEDS: PALIPERIDONE 6 MG ER TAB (INVEGA) PO SCH ×2 (08:53→20:08)
[2019-10-07] MEDS: NICOTINE 21MG/24HR 1 EA TRANSDERMAL TD SCH (09:00)
--- NOTE | 2019-10-07 09:28 | MHIPNPDOC ---
[facility] Progress Note Progress Note DATE OF SERVICE: 10/07/19 HISTORY: Patient is a 24 -year-old , male, with a psych history of schizophrenia, last admitted [facility] 03/04/19 for psychosis who was brought to ED by [facility] due to acting bizarre, paranoid, and requesting to come to [facility] ED per ED. Per ED, pt was very guarded, poor eye contact, need prompting on answering question and then would answer inappropriately, and non-verbal mostly when seen. Per ED, pt speaking to God "God has a plan for me" and that he came to the ED "to repent for my sins in velez esoteric way" and would inappropriately smile when speaking. Also stated, "I'm hearing shit I shouldn't be hearing." Per ED, pt has been non-compliant with outpatient care and medications. VITAL SIGNS: See below. NEW TEST RESULTS: See below. CURRENT MEDICATIONS: See below. MENTAL STATUS EXAMINATION: Patient is a 24-year old male, who is clean and in his own clothes. Speech: Is clear, normal volume, regular rate and rhythm. Language skills are intact. Thought processes including: logical and linear. Thought content: mystical/magical thinking. Denies SI, HI, AVH. Abstract reasoning, and computation: more appropriate Description of associations: more appropriate Description of abnormal or psychotic thoughts: bizarre delusions Judgment: improving Insight: improving Orientation: AAOx3. Recent and remote memory: intact. Attention span and concentration: fair Language: intact. Fund of knowledge: intact. Mood: "Good" Affect:euthymic, less lackadaisical and less bizarre DIAGNOSES: 1. Paranoid Schizophrenia 2. Cannabis use d/o ASSESSMENT: Pt seen and states that his mood is "good." Pt appears improved, he is less bizarre in his thinking and states his thoughts are more clear. States he slept well last night. Feels he is tolerating his medications and they're beneficial- he is agreeable to receiving his invega sustenna 156 mg IM shot tomorrow. He is attending groups and finds them helpful. He denies insomnia, SI/HI, hallucinations, and delusions. Pt feels safe here. MANAGEMENT PLAN: Continue Invega 6 mg. D/c planning tomorrow. D/c oral invega prior d/c after second invega sustenna given. invega sustenna 234mg im 10/05/2019 invega sustenna 156mg im Friday TIME SPENT: 30 minutes. Vital Signs Vital Signs Date Time Temp Pulse Resp B/P (MAP) Pulse Ox O2 Delivery O2 Flow Rate FiO2 10/07/19 05:52 99.5 96 16 116/62 (80) 10/05/19 06:36 Room Air 10/01/19 00:23 99 Current Medications Current Medications Medications (Trade) Dose Ordered Sig/Liset Route PRN Reason Start Time Stop Time Status Last Admin Dose Admin Acetaminophen (Tylenol Tab) 650 mg Q6HP PRN PO HEADACHE or DISCOMFORT 09/30/19 23:30 Al Hydrox/Mg Hydrox/Simethicone (Mylanta) 30 ml Q4HP PRN PO HEARTBURN/INDIGESTION 09/30/19 23:30 Home Med (Med Rec Complete!) ASDIRECTED XX 09/30/19 21:45 09/30/19 21:40 DC Magnesium Hydroxide (Milk Of Magnesia) 30 ml DAILYPRN PRN PO CONSTIPATION 09/30/19 23:30 Nicotine (Nicoderm Cq 21mg) 1 patch DAILY TD 09/30/19 09:00 Olanzapine (ZyPREXA ZYDIS) 5 mg Q6HP PRN PO ANXIETY/AGITATION 09/30/19 23:30 Paliperidone (Invega) 3 mg BID PO 09/30/19 21:00 10/01/19 11:03 DC 10/01/19 09:00 Paliperidone (Invega) 6 mg BID PO 10/01/19 21:00 10/06/19 20:04 Trazodone HCl (Desyrel) 50 mg QHSP PRN PO INSOMNIA 09/30/19 23:30 10/06/19 20:04 Allergies Coded Allergies: [place] (Verified Allergy, Unknown, 02/08/18) GME ATTESTATION My faculty preceptor for this patient encounter was physically present during encounter and was fully available. All aspects of the patient interview, examination, medical decision making process, and medical care plan development were reviewed and approved by the faculty preceptor. The faculty preceptor is aware and concurs with the plan as stated in the body of this note and will attest to such by his/her cosignature. ATTENDING NOTE Pt seen and agree with student note. KATIE SO OMS-IV Oct 07, 2019 8:24 am CARLINE SAVAGE DO Oct 07, 2019 10:41 am
[2019-10-07 15:46] VITALS: BP 96/54
[2019-10-07] MEDS: traZODone 50 MG TAB PO PRN (20:08)
[2019-10-08 07:58] VITALS: BP 117/62
[2019-10-08] MEDS: PALIPERIDONE 6 MG ER TAB (INVEGA) PO SCH (08:14)
[2019-10-08] MEDS: NICOTINE 21MG/24HR 1 EA TRANSDERMAL TD SCH (08:30)
[2019-10-08] MEDS ORDERED: PALIPERIDONE PALMITATE 156MG/1ML INJ(INVEGA)(J2426)(FREE PSY INPT ONLY) IM ONE (09:00)
--- NOTE | 2019-10-08 09:01 | MHDSPDOC ---
[facility] Discharge Summary Discharge Summary DATE OF ADMISSION: Sep 30, 2019 at 11:25 pm DATE OF DISCHARGE: Oct 08, 2019 DISCHARGE DIAGNOSES: 1. Paranoid Schizophrenia 2. Cannabis use d/o REASON FOR ADMISSION: Patient is a 24 -year-old , male, with a psych history of schizophrenia, last admitted [facility] 03/04/19 for psychosis who was brought to ED by [facility] due to acting bizarre, paranoid, and requesting to come to [facility] ED per ED. Per ED, pt was very guarded, poor eye contact, need prompting on answering question and then would answer inappropriately, and non-verbal mostly when seen. Per ED, pt speaking to God "God has a plan for me" and that he came to the ED "to repent for my sins in velez esoteric way" and would inappropriately smile when speaking. Also stated, "I'm hearing shit I shouldn't be hearing." Per ED, pt has been non-compliant with outpatient care and medications. CONSULTANTS INVOLVED: none TREATMENT AND PROGRESS ON THE UNIT : Pt was admitted to [facility], seen for psychiatric assessment and started on invega 3mg bid that was increased to 6mg bid with finally administration on invega sustenna 234mg im and then 156mg im 3 days later with discontinuation of oral invega as he tolerated invega sustenna well and it appeared beneficial for pt's psychotic symptoms. He was provided trazodone 50mg qhs prn insomnia. Pt found his medications beneficial and tolerated them well. He attended groups daily during his stay. His symptoms improved with treatment. On day of discharge he denied depression, anxiety, insomnia, SI/HI, hallucinations, delusions. He was discharged home home to girlfriend's aunts home with follow-up with follow-up [facility].. He felt safe for discharge. DISCHARGE ASSESSMENT: Pt seen and states that his mood is "good." Pt appears to have improved greatly and his thoughts are now linear and logical. States he slept well last night. Feels he is tolerating his medications and invega is beneficial. He is attending groups and finds them helpful. He denies de pression, anxiety, insomnia, SI/HI, hallucinations, paranoia, and delusions. Pt feels safe to d/c home. MENTAL STATUS EXAMINATION ON DISCHARGE: Patient is a 24-year old male, who is clean and in his own clothes. Speech: Is clear, normal volume, regular rate and rhythm. Language skills are intact. Thought processes including: logical and linear. Thought content: mystical/magical thinking. Denies SI, HI, AVH. Abstract reasoning, and computation: more appropriate Description of associations: more appropriate Description of abnormal or psychotic thoughts: bizarre delusions Judgment: good Insight: good Orientation: AAOx3. Recent and remote memory: intact. Attention span and concentration: fair Language: intact. Fund of knowledge: intact. Mood: "Good" Affect:euthymic, full range MEDICATIONS ON DISCHARGE: invega sustenna 234mg im qmonthly PLAN/FOLLOWUP ARRANGEMENTS: D/c home to girlfriend's aunts home with follow-up with follow-up [facility]. The amount of time spent in the coordination of care for this patient was approximately 30 minutes. Vital Signs/I&Os Vital Signs Date Time Temp Pulse Resp B/P (MAP) Pulse Ox O2 Delivery O2 Flow Rate FiO2 10/08/19 07:58 97.7 86 14 117/62 (80) 10/05/19 06:36 Room Air Medications Unable to Obtain Active Prescriptions or Reported Meds Allergies Coded Allergies: [place] (Verified Allergy, Unknown, 02/08/18) CARLINE SAVAGE DO Oct 08, 2019 9:01 am
[2019-10-08] MEDS ORDERED: INVE234I IM (09:05)
== END 2019-10-08 13:15 | disposition home or self-care (01) | DRG 750 ==
LOC: M ED 20:53 → M ED INP 23:25 → M PSY 23:48
PROVIDERS: ADMIT Psychiatry & Neurology Psychiatry; ATTEND Psychiatry & Neurology Psychiatry
DX: F20.0 Paranoid schizophrenia (principal); F12.10 Cannabis abuse, uncomplicated; Z91.14 Patient's other noncompliance with medication regimen; Z91.018 Allergy to other foods; F17.210 Nicotine dependence, cigarettes, uncomplicated

== ENCOUNTER 2020-12-30 06:57 | Emergency (ER) | payer MEDICAID, OTHER ==
[~2020-12-30] VITALS: Ht 160 cm; Wt 56.8 kg
[2020-12-30] MEDS ORDERED: NS 1,000 ML IV ONE ×2 (07:05→08:05)
[2020-12-30 07:30] LABS: BASO % 0.3 % (0.0-1.0); EOS # 0.1 10^3/uL (0.0-0.5); EOS % 0.8 % (0.0-3.0); HEMATOCRIT 52.8 % (42.0-52.0); HEMOGLOBIN 17.4 g/dl (13.5-17.5); LYMPH # 2.4 10^3/uL (1.5-5.0); LYMPH % 18.4 % (24.0-44.0); MEAN CORPUSCULAR HEMOGLOBIN 30.3 pg (27.0-33.0); MONO # 1.4 10^3/uL (0.0-0.8); MONO % 11.1 % (2.0-8.0); NEUTROPHILS # 8.9 10^3/uL (1.5-8.5); NEUTROPHILS % 68.6 % (36.0-66.0); PLATELET COUNT, AUTOMATED 239 10^3/uL (150-450); RED BLOOD COUNT 5.74 10^6/uL (4.30-6.10)
[2020-12-30 07:59] LABS: ACETAMINOPHEN LEVEL < 2.0 UG/ML (10.0-30.0); ALBUMIN 4.2 GM/DL (3.2-5.2); ALT/SGPT 16 U/L (12-78); BILIRUBIN,DIRECT 0.2 MG/DL (0.0-0.2); BILIRUBIN,TOTAL 0.9 MG/DL (0.2-1.0); BLOOD UREA NITROGEN 14 MG/DL (7-18); CALCIUM LEVEL 9.6 MG/DL (8.5-10.1); CARBON DIOXIDE LEVEL 17 MEQ/L (21-32); CHLORIDE LEVEL 102 MEQ/L (98-107); CPK CREATINE PHOSPHOKINASE 143 U/L (39-308); CREATININE FOR GFR 1.51 MG/DL (0.70-1.30); ETHYL ALCOHOL (ETHANOL) < 0.003 % (0.000-0.010); GLOMERULAR FILTRATION RATE > 60.0 (>60); GLUCOSE, FASTING 161 MG/DL (70-100); POTASSIUM SERUM 4.2 MEQ/L (3.5-5.1); SALICYLATE LEVEL 3.8 MG/DL (5.0-30.0); SODIUM LEVEL 136 MEQ/L (136-145); TOTAL PROTEIN 7.9 GM/DL (6.4-8.2)
[2020-12-30 09:40] LABS: AMPHETAMINES LEVEL URINE NEGATIVE (NEGATIVE); BARBITURATES URINE NEGATIVE (NEGATIVE); BENZODIAZEPINES URINE NEGATIVE (NEGATIVE); CANNABINOIDS URINE POSITIVE (NEGATIVE); COCAINE METABOLITE URINE POSITIVE (NEGATIVE); METHADONE URINE NEGATIVE (NEGATIVE); OPIATES URINE NEGATIVE (NEGATIVE); PHENCYCLIDINE URINE NEGATIVE (NEGATIVE)
[2020-12-30 10:04] LABS: BLOOD UREA NITROGEN 12 MG/DL (7-18); CARBON DIOXIDE LEVEL 24 MEQ/L (21-32); CHLORIDE LEVEL 109 MEQ/L (98-107); CREATININE FOR GFR 0.98 MG/DL (0.70-1.30); GLOMERULAR FILTRATION RATE > 60.0 (>60); GLUCOSE, FASTING 92 MG/DL (70-100); POTASSIUM SERUM 3.9 MEQ/L (3.5-5.1); SODIUM LEVEL 141 MEQ/L (136-145)
--- NOTE | 2020-12-30 10:05 | REPVR ---
PROCEDURE INFORMATION: Exam: CT Head Without Contrast Exam date and time: 12/30/2020 9:35 AM Age: 25 years old Clinical indication: Altered mental status/memory loss; Confusion or disorientation; Additional info: Altered ms, seizure TECHNIQUE: Imaging protocol: Computed tomography of the head without contrast. Radiation optimization: All CT scans at this facility use at least one of these dose optimization techniques: automated exposure control; mA and/or kV adjustment per patient size (includes targeted exams where dose is matched to clinical indication); or iterative reconstruction. COMPARISON: CT Head without contrast 04/20/2016 12:20 PM FINDINGS: Brain: Normal. No hemorrhage. Unremarkable white matter. No mass effect. Cerebral ventricles: No ventriculomegaly. Bones/joints: Unremarkable. No acute fracture. Paranasal sinuses: Visualized sinuses are unremarkable. No fluid levels. Mastoid air cells: Visualized mastoid air cells are well aerated. Soft tissues: Unremarkable. IMPRESSION: No acute intracranial abnormality. Electronically signed by: Fili Ca On 12/30/2020 10:05:18 AM
[2020-12-30 17:55] LABS: RSV AMPLIFICATION NEGATIVE (NEGATIVE)
--- NOTE | 2020-12-30 19:06 | ECGEPIP ---
[facility] - ED Test Date: 2020-12-30 Pat Name: ASUNCION SEE Department: Room: - Gender: Male [employer] Vice President: Roberto SWENSON : 1995 Requested By: Stoney Laureano Order Number: [id number] Reading MD: Stoney Laureano Measurements Intervals [place] Rate: 128 P: 66 [place]: 124 QRS: 78 QRSD: 82 T: 8 QT: 296 QTc: 432 Interpretive Statements Sinus tachycardia Nonspecific ST T wave changes Delayed R wave progression 04/20/[address] T wave changes Electronically Signed on 12-30-2020 19:06:00 EDT by Stoney Laureano
[2020-12-30 20:41] VITALS: BP 117/65
== END 2020-12-30 20:46 ==
LOC: M ED 06:57 → EDBD 06:57 → M ED 20:46
DX: F23 Brief psychotic disorder (principal); F20.9 Schizophrenia, unspecified; R00.0 Tachycardia, unspecified; F19.10 Other psychoactive substance abuse, uncomplicated; F17.290 Nicotine dependence, other tobacco product, uncomplicated; Z91.018 Allergy to other foods; Z79.899 Other long term (current) drug therapy; Z81.8 Family history of other mental and behavioral disorders

== ENCOUNTER 2022-03-17 18:00 | Emergency (ER) | payer MEDICAID, OTHER ==
[~2022-03-17] VITALS: Ht 165.1 cm; Wt 65.4 kg
[~2022-03-17 18:00] MED LIST changes: +OLAN1TAB16 PO; -OLAN5TAB PO
[2022-03-17 18:01] VITALS: BP 143/91
== END 2022-03-17 21:18 | disposition home or self-care (01) ==
LOC: M ED 18:00
DX: F20.9 Schizophrenia, unspecified (principal); Z59.00 Homelessness unspecified; F12.10 Cannabis abuse, uncomplicated; F17.200 Nicotine dependence, unspecified, uncomplicated

== ENCOUNTER → 2022-07-31 | Outpatient (CLI) | payer OTHER | LOC: M OUTALCOH 07:40 | PROVIDERS: ATTEND Psychiatry & Neurology Psychiatry | DX: F10.10 Alcohol abuse, uncomplicated (principal) ==

== ENCOUNTER 2022-08-21 08:40 | Outpatient (RCR) | payer OTHER | END 2022-08-28 | LOC: M OUTALCOH 08:40 | PROVIDERS: ATTEND Psychiatry & Neurology Psychiatry | DX: F16.20 Hallucinogen dependence, uncomplicated (principal); F12.20 Cannabis dependence, uncomplicated; F10.10 Alcohol abuse, uncomplicated; Z72.0 Tobacco use ==

== ENCOUNTER 2023-04-03 17:18 | Emergency (ER) | payer OTHER ==
[~2023-04-03] VITALS: Ht 167.6 cm; Wt 67.5 kg
[~2023-04-03 17:18] MED LIST changes: +DIPH-435 PO; -DIPH25CA32 PO
[2023-04-03 20:32] VITALS: BP 122/68; TEMP 98.4; O2SAT 99
== END 2023-04-03 20:31 | disposition home or self-care (01) ==
LOC: M ED 17:18
DX: F20.0 Paranoid schizophrenia (principal); F12.90 Cannabis use, unspecified, uncomplicated; Z91.018 Allergy to other foods; Z79.899 Other long term (current) drug therapy

== ENCOUNTER 2023-04-03 20:42 | Emergency (ER) | payer OTHER ==
[~2023-04-03] VITALS: Ht 167.6 cm; Wt 68.1 kg
[2023-04-04] MEDS ORDERED: KETOROLAC 30 MG/ML 1ML VIAL IM ONE (08:20)
[2023-04-04 08:25] VITALS: BP 124/73; TEMP 98.2; O2SAT 99
== END 2023-04-04 09:00 | disposition home or self-care (01) ==
LOC: M ED 20:42
DX: S30.0XXA Contusion of lower back and pelvis, initial encounter (principal); W17.89XA Other fall from one level to another, initial encounter; Y92.830 Public park as the place of occurrence of the external cause; Y93.89 Activity, other specified; Y99.8 Other external cause status; M54.6 Pain in thoracic spine; F20.9 Schizophrenia, unspecified; Z87.891 Personal history of nicotine dependence; Z88.6 Allergy status to analgesic agent; Z91.018 Allergy to other foods; Z79.899 Other long term (current) drug therapy
CPT/HCPCS: 72052; 72072; 72110; 96372; 99282; J1885

== ENCOUNTER 2024-05-27 14:23 | Inpatient (IN) | payer MEDICAID ==
[~2024-05-27] VITALS: Ht 172.7 cm; Wt 65.9 kg
[2024-05-27 17:03] LABS: HEMATOCRIT 42.1 % (42.0-52.0); HEMOGLOBIN 14.4 g/dl (13.5-17.5); MEAN CORPUSCULAR HEMOGLOBIN 30.1 pg (27.0-33.0); MEAN CORPUSCULAR HGB CONC 34.2 g/dl (32.0-36.5); MEAN CORPUSCULAR VOLUME 88.1 fl (80.0-96.0); PLATELET COUNT, AUTOMATED 199 10^3/uL (150-450); RED BLOOD COUNT 4.78 10^6/uL (4.30-6.10)
[2024-05-27 17:21] LABS: AMPHETAMINES LEVEL URINE NEGATIVE (NEGATIVE); BARBITURATES URINE NEGATIVE (NEGATIVE); BENZODIAZEPINES URINE NEGATIVE (NEGATIVE); COCAINE METABOLITE URINE NEGATIVE (NEGATIVE); METHADONE URINE NEGATIVE (NEGATIVE); OPIATES URINE NEGATIVE (NEGATIVE); PHENCYCLIDINE URINE NEGATIVE (NEGATIVE)
[2024-05-27 17:24] LABS: ETHYL ALCOHOL (ETHANOL) < 0.003 % (0.000-0.010)
[2024-05-27 17:24] LABS: CANNABINOIDS URINE POSITIVE (NEGATIVE)
[2024-05-27 17:25] LABS: SALICYLATE LEVEL < 3.0 MG/DL (<30)
[2024-05-27 17:26] LABS: ALBUMIN 3.9 G/DL (3.2-5.2); ALKALINE PHOSPHATASE 78 U/L (46-116); ALT/SGPT 27 U/L (7.0-40); AST/SGOT 44 U/L (<34); BILIRUBIN,DIRECT 0.3 MG/DL (<0.4); BILIRUBIN,TOTAL 0.9 MG/DL (0.3-1.2); BLOOD UREA NITROGEN 9 MG/DL (9-23); CALCIUM LEVEL 9.2 MG/DL (8.5-10.1); CARBON DIOXIDE LEVEL 31 MMOL/L (20-31); CHLORIDE LEVEL 104 MMOL/L (98-107); CREATININE FOR GFR 0.81 MG/DL (0.70-1.30); GLOMERULAR FILTRATION RATE > 60.0 (>60); GLUCOSE, FASTING 115 MG/DL (60-100); POTASSIUM SERUM 4.1 MMOL/L (3.5-5.1); SODIUM LEVEL 139 MMOL/L (136-145); TOTAL PROTEIN 6.6 G/DL (5.7-8.2)
[2024-05-27 17:28] LABS: THYROID STIMULATING HORMONE 1.519 uIU/ML (0.55-4.78)
[2024-05-27] MEDS ORDERED: HOME MED LIST COMPLETE! XX SCH (19:30)
[2024-05-27] MEDS ORDERED: traZODone 50 MG TAB PO PRN (19:30)
[2024-05-27] MEDS ORDERED: MAALOX 30 ML SUSP *UDC PO PRN (19:30)
[2024-05-27] MEDS ORDERED: MOM 30ML SUSPENSION UDC PO PRN (19:30)
[2024-05-27] MEDS ORDERED: diphenhydrAMINE 25MG CAP PO PRN (19:30)
[2024-05-27] MEDS ORDERED: IBUPROFEN 400MG TAB PO PRN (19:30)
[2024-05-27 22:13] VITALS: BP 136/88; TEMP 98.2; O2SAT 98
[2024-05-28 06:36] VITALS: BP 117/74; TEMP 96; O2SAT 98
[2024-05-28] MEDS: NICOTINE 14 MG/24 HR TRANSDERMAL TD SCH (10:50)
[2024-05-28] MEDS ORDERED: OLANZapine ORAL DISINTEGRATING TAB 5MG PO PRN (12:05)
[2024-05-28] MEDS: OLANZapine 5 MG TAB PO SCH (12:32)
[2024-05-28 16:15] VITALS: BP 124/85; TEMP 97.5; O2SAT 98
[2024-05-29 06:01] VITALS: BP 117/63; TEMP 97.5; O2SAT 97
[2024-05-29 15:59] VITALS: BP 103/59; TEMP 97.7; O2SAT 96
[2024-05-30 06:34] VITALS: BP 132/75; TEMP 98.3; O2SAT 98
[2024-05-30 15:36] VITALS: BP 119/78; TEMP 98.4; O2SAT 100
[2024-05-31 06:24] VITALS: BP 119/62; TEMP 98.6; O2SAT 97
[2024-05-31 16:06] VITALS: BP 138/84; TEMP 97.5; O2SAT 100
[2024-06-01 06:28] VITALS: BP 117/60; TEMP 97.7; O2SAT 98
[2024-06-01 15:55] VITALS: BP 119/75; TEMP 97.3; O2SAT 97
[2024-06-02 06:36] VITALS: BP 112/70; TEMP 97.4; O2SAT 99
[2024-06-02 14:46] VITALS: BP 131/73; TEMP 96.5; O2SAT 97
[2024-06-03 06:14] VITALS: BP 117/68; TEMP 97.4; O2SAT 98
[2024-06-03 15:27] VITALS: BP 126/77; TEMP 97.8; O2SAT 95
[2024-06-04 06:21] VITALS: BP 128/70; TEMP 98.6; O2SAT 96
[2024-06-04] MEDS ORDERED: OLAN1TAB16 PO (09:56)
[2024-06-04] MEDS ORDERED: TRAZ-252 PO (09:56)
== END 2024-06-04 11:59 | disposition home or self-care (01) | DRG 751 ==
LOC: M ED 14:23 → M ED INP 19:26 → M PSY 20:53
PROVIDERS: ADMIT Psychiatry & Neurology Psychiatry; ATTEND Psychiatry & Neurology Psychiatry
DX: F29 Unspecified psychosis not due to a substance or known physiological condition (principal); F12.10 Cannabis abuse, uncomplicated; Z86.59 Personal history of other mental and behavioral disorders

== ENCOUNTER 2024-06-07 02:55 | Emergency (ER) | payer MEDICAID, OTHER ==
[~2024-06-07] VITALS: Ht 167.6 cm; Wt 74.2 kg
[~2024-06-07 02:55] MED LIST changes: +TRAZ-252 PO
[2024-06-07] MEDS ORDERED: FLON1SPR NARES (07:49)
[2024-06-07] MEDS ORDERED: IBUP-1022 PO (07:49)
[2024-06-07 07:53] VITALS: BP 131/87; TEMP 97.2; O2SAT 97
== END 2024-06-07 08:00 | disposition home or self-care (01) ==
LOC: M ED 02:55
DX: H92.02 Otalgia, left ear (principal); F17.210 Nicotine dependence, cigarettes, uncomplicated; Z88.8 Allergy status to other drugs, medicaments and biological substances; Z91.018 Allergy to other foods; Z79.1 Long term (current) use of non-steroidal anti-inflammatories (NSAID); Z79.899 Other long term (current) drug therapy

== ENCOUNTER 2024-07-14 21:41 | Emergency (ER) | payer OTHER ==
[~2024-07-14] VITALS: Ht 165.1 cm; Wt 72.0 kg
[~2024-07-14 21:41] MED LIST changes: +FLON1SPR NARES; +IBUP-1022 PO
[2024-07-15] MEDS: CIPRODEX OTIC SUSP 7.5ML AD STA (05:30)
[2024-07-15 08:36] VITALS: BP 107/70; TEMP 97.8; O2SAT 100
== END 2024-07-15 08:50 | disposition home or self-care (01) ==
LOC: M ED 21:41
DX: H92.01 Otalgia, right ear (principal); F20.9 Schizophrenia, unspecified; F41.9 Anxiety disorder, unspecified; F32.A Depression, unspecified; Z88.8 Allergy status to other drugs, medicaments and biological substances; Z91.018 Allergy to other foods; Z79.1 Long term (current) use of non-steroidal anti-inflammatories (NSAID); Z79.899 Other long term (current) drug therapy

== ENCOUNTER 2024-09-18 10:26 | Emergency (ER) | payer OTHER ==
[~2024-09-18] VITALS: Ht 165.1 cm; Wt 78.0 kg
[2024-09-18 12:12] LABS: HEPATITIS B SURFACE ANTIBODY POSITIVE (POSITIVE)
[2024-09-18 12:24] LABS: HEPATITIS B SURFACE ANTIGEN NEGATIVE (NEGATIVE)
[2024-09-18 12:37] LABS: HIV 1&2 SCREEN NEGATIVE (NEGATIVE)
[2024-09-18 12:46] LABS: Trichomonas vaginalis (AMP) NOT DETECTED (NEGATIVE)
[2024-09-18 12:49] LABS: HEPATITIS C VIRUS ABY INDEX 9.85 INDEX (<0.8)
[2024-09-18 13:10] LABS: GC DNA AMPLIFICATION NEGATIVE (NEGATIVE)
[2024-09-18 13:29] VITALS: BP 138/76; TEMP 98.1; O2SAT 100
[2024-09-21 07:48] LABS: HCV RNA QUANTITATION <15 NOT DETECTED IU/mL (NOT DETECTED); HCV RNA log10 <1.18 NOT DETECTED Log IU/mL (NOT DETECTED)
== END 2024-09-18 13:30 | disposition home or self-care (01) ==
LOC: M ED 10:26
DX: Z20.2 Contact with and (suspected) exposure to infections with a predominantly sexual mode of transmission (principal); Z88.8 Allergy status to other drugs, medicaments and biological substances; Z91.018 Allergy to other foods; Z79.1 Long term (current) use of non-steroidal anti-inflammatories (NSAID); Z79.899 Other long term (current) drug therapy

== ENCOUNTER 2024-12-30 03:17 | Emergency (ER) | payer OTHER ==
[~2024-12-30] VITALS: Ht 165.1 cm; Wt 73.2 kg
[2024-12-30 03:50] LABS: HEMATOCRIT 50.5 % (42.0-52.0); HEMOGLOBIN 16.8 g/dl (13.5-17.5); MEAN CORPUSCULAR HEMOGLOBIN 31.1 pg (27.0-33.0); MEAN CORPUSCULAR HGB CONC 33.3 g/dl (32.0-36.5); MEAN CORPUSCULAR VOLUME 93.5 fl (80.0-96.0); PLATELET COUNT, AUTOMATED 273 10^3/uL (150-450); WHITE BLOOD COUNT 10.6 10^3/uL (4.0-10.0)
[2024-12-30] MEDS ORDERED: HOME MED LIST COMPLETE! XX SCH (03:55)
[2024-12-30 04:22] LABS: ETHYL ALCOHOL (ETHANOL) 0.003 % (0.000-0.010)
[2024-12-30 04:24] LABS: ALKALINE PHOSPHATASE 89 U/L (40-129); ALT/SGPT 22 U/L (7.0-40); AST/SGOT 25 U/L (<34); BILIRUBIN,DIRECT < 0.1 MG/DL (<0.4); BILIRUBIN,TOTAL 0.3 MG/DL (0.3-1.2); BLOOD UREA NITROGEN 12 MG/DL (9-23); CALCIUM LEVEL 9.7 MG/DL (8.5-10.1); CARBON DIOXIDE LEVEL 32 MMOL/L (20-31); CHLORIDE LEVEL 105 MMOL/L (98-107); CREATININE FOR GFR 0.79 MG/DL (0.70-1.30); GLOMERULAR FILTRATION RATE > 60.0 (>60); GLUCOSE, FASTING 93 MG/DL (60-100); POTASSIUM SERUM 4.6 MMOL/L (3.5-5.1); SALICYLATE LEVEL < 3.0 MG/DL (<30); SODIUM LEVEL 142 MMOL/L (136-145); TOTAL PROTEIN 7.3 G/DL (5.7-8.2)
[2024-12-30 04:26] LABS: THYROID STIMULATING HORMONE 1.191 uIU/ML (0.55-4.78)
[2024-12-30 09:17] LABS: AMPHETAMINES LEVEL URINE NEGATIVE (NEGATIVE); BARBITURATES URINE NEGATIVE (NEGATIVE); BENZODIAZEPINES URINE NEGATIVE (NEGATIVE); COCAINE METABOLITE URINE NEGATIVE (NEGATIVE); METHADONE URINE NEGATIVE (NEGATIVE); OPIATES URINE NEGATIVE (NEGATIVE); PHENCYCLIDINE URINE NEGATIVE (NEGATIVE)
[2024-12-30 09:18] LABS: CANNABINOIDS URINE POSITIVE (NEGATIVE)
[2024-12-30 10:36] VITALS: BP 138/93; TEMP 97.8; O2SAT 99
== END 2024-12-30 10:51 | disposition home or self-care (01) ==
LOC: M ED 03:17
DX: F43.20 Adjustment disorder, unspecified (principal); F32.A Depression, unspecified; F41.9 Anxiety disorder, unspecified; F20.9 Schizophrenia, unspecified; Z88.6 Allergy status to analgesic agent; Z91.018 Allergy to other foods

== ENCOUNTER 2025-01-26 14:39 | Emergency (ER) | payer MEDICAID, OTHER ==
[~2025-01-26] VITALS: Ht 165.1 cm; Wt 70.4 kg
[2025-01-26 15:46] LABS: HEMATOCRIT 46.4 % (42.0-52.0); HEMOGLOBIN 15.7 g/dl (13.5-17.5); MEAN CORPUSCULAR HEMOGLOBIN 31.3 pg (27.0-33.0); MEAN CORPUSCULAR HGB CONC 33.8 g/dl (32.0-36.5); MEAN CORPUSCULAR VOLUME 92.6 fl (80.0-96.0); PLATELET COUNT, AUTOMATED 219 10^3/uL (150-450); RED BLOOD COUNT 5.01 10^6/uL (4.30-6.10); WHITE BLOOD COUNT 7.5 10^3/uL (4.0-10.0)
[2025-01-26 15:57] LABS: AMPHETAMINES LEVEL URINE NEGATIVE (NEGATIVE); BARBITURATES URINE NEGATIVE (NEGATIVE); BENZODIAZEPINES URINE NEGATIVE (NEGATIVE); COCAINE METABOLITE URINE NEGATIVE (NEGATIVE); METHADONE URINE NEGATIVE (NEGATIVE); OPIATES URINE NEGATIVE (NEGATIVE); PHENCYCLIDINE URINE NEGATIVE (NEGATIVE)
[2025-01-26 15:59] LABS: CANNABINOIDS URINE POSITIVE (NEGATIVE)
[2025-01-26 16:12] LABS: ETHYL ALCOHOL (ETHANOL) 0.104 % (0.000-0.010)
[2025-01-26 16:14] LABS: ALBUMIN 3.8 G/DL (3.2-5.2); ALKALINE PHOSPHATASE 61 U/L (40-129); ALT/SGPT 20 U/L (7.0-40); AST/SGOT 21 U/L (<34); BILIRUBIN,DIRECT 0.2 MG/DL (<0.4); BILIRUBIN,TOTAL 0.6 MG/DL (0.3-1.2); BLOOD UREA NITROGEN 8 MG/DL (9-23); CARBON DIOXIDE LEVEL 31 MMOL/L (20-31); CHLORIDE LEVEL 105 MMOL/L (98-107); GLOMERULAR FILTRATION RATE > 90.0 (>60); GLUCOSE, FASTING 82 MG/DL (60-100); POTASSIUM SERUM 3.8 MMOL/L (3.5-5.1); SALICYLATE LEVEL < 3.0 MG/DL (<30); SODIUM LEVEL 143 MMOL/L (136-145); TOTAL PROTEIN 6.6 G/DL (5.7-8.2)
[2025-01-26 16:16] LABS: THYROID STIMULATING HORMONE 0.909 uIU/ML (0.55-4.78)
[2025-01-26] MEDS ORDERED: HOME MED LIST COMPLETE! XX SCH (16:40)
[2025-01-26 18:17] VITALS: BP 146/80; TEMP 97; O2SAT 98
== END 2025-01-26 18:26 | disposition home or self-care (01) ==
LOC: M ED 14:39
DX: Z04.6 Encounter for general psychiatric examination, requested by authority (principal); F20.9 Schizophrenia, unspecified; F19.10 Other psychoactive substance abuse, uncomplicated; F17.210 Nicotine dependence, cigarettes, uncomplicated; Z88.6 Allergy status to analgesic agent; Z91.018 Allergy to other foods

== ENCOUNTER 2025-07-27 14:21 | Emergency (ER) | payer MEDICAID ==
[~2025-07-27 14:21] MED LIST changes: -IBUP-1022 PO; +IBUP600T42 PO
== END 2025-07-27 14:30 | disposition left against medical advice (07) ==
LOC: M ED 14:21
DX: Z53.21 Procedure and treatment not carried out due to patient leaving prior to being seen by health care provider (principal)